=== PATIENT | female | born 1955 | race American Indian/Alaskan Native ===

== ENCOUNTER 2022-02-25 10:29 | Outpatient (CLI) | payer MEDICARE ==
--- NOTE | 2022-02-25 13:33 | XRay Report ---
BILATERAL KNEE 4 VIEW(S) INDICATION / CLINICAL INFORMATION: PAIN IN UNSPECIFIED KNEE M25.569 COMPARISON: None available. FINDINGS: BONES / JOINT(S): No acute fracture or subluxation. Moderate degenerative arthrosis both knees. Intra -articular bodies left suprapatellar pouch and anterior aspect both knees. SOFT TISSUES: No significant abnormality. ADDITIONAL FINDINGS: None. IMPRESSION: 1. Moderate degenerative arthrosis both knees with intra-articular bodies Signer Name: Neil Espinoza MD Signed: 02/25/2022 1:28 PM Workstation Name: [id number]
--- NOTE | 2022-02-25 13:33 | XRay Report ---
LEFT HIP 3 VIEW(S) INDICATION / CLINICAL INFORMATION: LEFT HIP PAIN M25.552 COMPARISON: None available. FINDINGS: BONES / JOINT(S): No acute fracture or subluxation. Markedly advanced left hip arthrosis. SOFT TISSUES: No significant abnormality. ADDITIONAL FINDINGS: None. IMPRESSION: 1. Markedly advanced left hip arthrosis Signer Name: Neil Espinoza MD Signed: 02/25/2022 1:29 PM Workstation Name: [id number]
== END 2022-02-25 10:30 | disposition home or self-care (01) ==
LOC: XRAY 10:29
PROVIDERS: ATTEND Orthopaedic Surgery
DX: M17.0 Bilateral primary osteoarthritis of knee (principal); M16.12 Unilateral primary osteoarthritis, left hip
CPT/HCPCS: 73565